=== PATIENT | male | born 1960 | race Caucasian/White ===

== ENCOUNTER 2017-03-30 21:13 | Emergency (ER) | payer BC ==
[~2017-03-30] VITALS: Ht 165.1 cm; Wt 95.3 kg
--- NOTE | ~2017-03-30 | EKG ---
[place], [place] ELECTROCARDIOGRAM REPORT NAME: COY HERNANDEZ UNIT #: [id number] ROOM: DOCTOR: FRIDA SCHUSTER MD BIRTHDATE: [birth year] DOS: 03/30/2017 TIME: 21:46:11 RATE AND RHYTHM: Sinus tachycardia at 106 beats per minute. KS interval 164 milliseconds. QRS duration 97 milliseconds. Corrected QT interval 432 milliseconds. QRS axis is 262. IMPRESSION: 1. Sinus tachycardia. 2. Minimal ST elevation in inferior leads II, III, aVF, 0.08 millivolts. Consider rule out inferior wall injury. 3. This is an abnormal EKG. FRIDA SCHUSTER MD CM:EKGRPT:ELECTROCARDIOGRAM REPORT [id number] FRIDA SCHUSTER MD
[2017-03-30 22:03] LABS: BASO # 0.1 10*3/uL (0.0-0.1); BASO % 0.4 % (0.0-1.0); EOS # 0.2 10*3/uL (0.0-0.4); EOS % 1.5 % (1.0-4.0); HEMATOCRIT 48.1 % (42.0-52.0); HEMOGLOBIN 15.8 g/dl (14.0-18.0); LYMPH # 1.2 10*3/uL (1.3-4.4); LYMPH % 7.8 % (27.0-41.0); MEAN CELL VOLUME 93.9 fl (80.0-94.0); MEAN CORPUSCULAR HGB 30.9 pg (27.0-31.0); MEAN CORPUSCULAR HGB CONC 32.8 g/dl (33.0-37.0); MONO % 6.8 % (3.0-9.0); NEUT # 12.3 10*3/uL (2.3-7.9); PLATELET COUNT AUTOMATED 201 10*3/uL (130-400); RED BLOOD COUNT 5.12 10*6/uL (4.50-5.90); WHITE BLOOD COUNT 14.8 10*3/uL (4.8-10.8)
[2017-03-30 22:19] LABS: BUN 10 mg/dl (7-24); CHLORIDE 102 mmol/L (98-107); CREATININE 0.95 mg/dL (0.70-1.30); POTASSIUM 4.2 mmol/L (3.5-5.1); SODIUM 138 mmol/L (136-145)
[2017-03-30 22:20] LABS: TROPONIN I < 0.015 ng/ml (<0.045)
[2017-03-30] MEDS ORDERED: DUONEB 3 MG/3 ML3 M1 INH (23:38)
[2017-03-30] MEDS ORDERED: PREDNISONE20 M1 PO (23:38)
[2017-03-30] MEDS ORDERED: LEVOFLOXACIN500 MG PO (23:38)
== END 2017-03-31 01:10 | disposition home or self-care (01) ==
LOC: ED 21:13
PROVIDERS: Emergency Medicine Emergency Medical Services
DX: J44.1 Chronic obstructive pulmonary disease with (acute) exacerbation (principal); F17.200 Nicotine dependence, unspecified, uncomplicated

== ENCOUNTER 2021-07-20 12:17 | Inpatient (IN) | payer OTHER ==
[~2021-07-20] VITALS: Ht 165.1 cm; Wt 106.3 kg
[~2021-07-20 12:17] MED LIST: DUONEB 3 MG/3 ML3 M1 INH; LEVOFLOXACIN500 MG PO; PREDNISONE20 M1 PO
[2021-07-20 12:53] LABS: HEMATOCRIT 48.6 % (42.0-52.0); MEAN CELL VOLUME 93.5 fl (80.0-94.0); MEAN CORPUSCULAR HGB 31.3 pg (27.0-31.0); MEAN CORPUSCULAR HGB CONC 33.5 g/dl (33.0-37.0); PLATELET COUNT AUTOMATED 330 10*3/uL (130-400); RED CELL DISTRI WIDTH 13.4 % (0-14.5); WHITE BLOOD COUNT 23.1 10*3/uL (4.8-10.8)
[2021-07-20 13:05] LABS: ALBUMIN 3.9 gm/dl (3.1-4.5); ALKALINE PHOSPHATASE 94 U/L (45-117); BUN 17 mg/dl (7-24); CHLORIDE 105 mmol/L (98-107); CREATININE 0.96 mg/dL (0.70-1.30); POTASSIUM 4.1 mmol/L (3.5-5.1); SGOT/AST 14 IU/L (3-35); SGPT/ALT 34 U/L (12-78); SODIUM 138 mmol/L (136-145); TOTAL PROTEIN 7.5 gm/dL (6.4-8.2)
[2021-07-20 13:21] LABS: PLATELET SUFFICIENCY NORMAL (NORMAL); TOTAL CELLS COUNTED 100 #CELLS
[2021-07-20 14:49] VITALS: BP 128/60
[2021-07-20] MEDS ORDERED: TRELEGY ELLIPT1 EACH INH (16:38)
[2021-07-20] MEDS ORDERED: DALI500T PO (16:38)
[2021-07-20 17:32] VITALS: BP 126/63
[2021-07-20 21:14] LABS: BILIRUBIN Negative (Negative); BLOOD Negative (Negative); CLARITY Clear (Clear); COLOR Yellow (Yellow); GLUCOSE Trace (Negative); KETONE 1+ (Negative); LEUKO ESTERASE Negative (Negative); NITRITE Negative (Negative); SPECIFIC GRAVITY >= 1.030 (1.001-1.030); UROBILINOGEN 0.2 E.U./dl (0.0-1.0)
[2021-07-20 21:20] VITALS: BP 170/73
[2021-07-20 21:30] VITALS: BP 161/90
[2021-07-20 21:32] LABS: BACTERIA 2+; URIC ACID CRYSTALS 2+
[2021-07-21] VITALS: BP 149/80
[2021-07-21 06:57] LABS: HEMATOCRIT 50.3 % (42.0-52.0); MEAN CELL VOLUME 93.8 fl (80.0-94.0); MEAN PLATELET VOLUME 9.8 fl (9.6-12.3); PLATELET COUNT AUTOMATED 250 10*3/uL (130-400); RED BLOOD COUNT 5.36 10*6/uL (4.50-5.90); RED CELL DISTRI WIDTH 13.3 % (0-14.5); WHITE BLOOD COUNT 21.8 10*3/uL (4.8-10.8)
[2021-07-21 07:13] LABS: ALBUMIN 3.3 gm/dl (3.1-4.5); BUN 13 mg/dl (7-24); CHLORIDE 105 mmol/L (98-107); CHOLESTEROL 153 mg/dL (<200); CREATININE 0.84 mg/dL (0.70-1.30); POTASSIUM 4.3 mmol/L (3.5-5.1); SGOT/AST 13 IU/L (3-35); SGPT/ALT 28 U/L (12-78); SODIUM 137 mmol/L (136-145); TRIGLYCERIDES 61 mg/dl (<150)
[2021-07-21 07:17] LABS: ALKALINE PHOSPHATASE 73 U/L (45-117); FREE T4 0.91 ng/dl (0.76-1.46); LDL CHOLESTEROL 101 mg/dL (9-159); THYROID STIM HORMONE (HS) 0.332 uIU/ml (0.358-4.75); TOTAL PROTEIN 6.8 gm/dL (6.4-8.2)
[2021-07-21 07:51] LABS: BURR CELLS FEW; PLATELET SUFFICIENCY NORMAL (NORMAL); POLYCHROMASIA SLIGHT; TOTAL CELLS COUNTED 100 #CELLS
[2021-07-21 08:00] VITALS: BP 153/90
[2021-07-21 12:00] VITALS: BP 150/93
[2021-07-21 16:00] VITALS: BP 157/93
[2021-07-21 20:00] VITALS: BP 149/77
[2021-07-22] VITALS: BP 138/81
[2021-07-22 07:06] LABS: HEMATOCRIT 48.2 % (42.0-52.0); MEAN CORPUSCULAR HGB 31.7 pg (27.0-31.0); MEAN CORPUSCULAR HGB CONC 32.4 g/dl (33.0-37.0); MEAN PLATELET VOLUME 10.3 fl (9.6-12.3); PLATELET COUNT AUTOMATED 220 10*3/uL (130-400); RED BLOOD COUNT 4.92 10*6/uL (4.50-5.90); RED CELL DISTRI WIDTH 13.9 % (0-14.5); WHITE BLOOD COUNT 25.4 10*3/uL (4.8-10.8)
[2021-07-22 07:15] LABS: ALBUMIN 2.4 gm/dl (3.1-4.5); ALKALINE PHOSPHATASE 63 U/L (45-117); BUN 17 mg/dl (7-24); CHLORIDE 103 mmol/L (98-107); POTASSIUM 4.2 mmol/L (3.5-5.1); SGOT/AST 20 IU/L (3-35); SODIUM 135 mmol/L (136-145); TOTAL PROTEIN 6.2 gm/dL (6.4-8.2)
[2021-07-22 07:23] LABS: LIPASE 1139 U/L (73-393); SGPT/ALT 18 U/L (12-78)
[2021-07-22 08:00] VITALS: BP 149/74
[2021-07-22 08:32] LABS: ATYPICAL LYMPHS 1 % (0-0); PLATELET SUFFICIENCY NORMAL (NORMAL); POLYCHROMASIA SLIGHT; TOTAL CELLS COUNTED 100 #CELLS; TOXIC GRANULATION SLIGHT
[2021-07-22 08:33] LABS: BURR CELLS FEW
[2021-07-22 16:00] VITALS: BP 144/74
[2021-07-22 20:00] VITALS: BP 141/82
[2021-07-23] VITALS (10 sets, daily range): BP systolic 105–167; BP diastolic 46–82
[2021-07-23 06:49] LABS: BASO % 0.2 % (0.0-1.0); EOS # 0.2 10*3/uL (0.0-0.4); EOS % 0.9 % (1.0-4.0); HEMATOCRIT 41.7 % (42.0-52.0); LYMPH # 0.7 10*3/uL (1.3-4.4); MEAN CELL VOLUME 96.1 fl (80.0-94.0); MEAN CORPUSCULAR HGB 31.3 pg (27.0-31.0); MEAN CORPUSCULAR HGB CONC 32.6 g/dl (33.0-37.0); MEAN PLATELET VOLUME 10.2 fl (9.6-12.3); MONO # 1.5 10*3/uL (0.1-1.0); MONO % 8.2 % (3.0-9.0); NEUT # 15.6 10*3/uL (2.3-7.9); NEUT % 85.7 % (47.0-73.0); PLATELET COUNT AUTOMATED 202 10*3/uL (130-400); RED BLOOD COUNT 4.34 10*6/uL (4.50-5.90); RED CELL DISTRI WIDTH 13.8 % (0-14.5); WHITE BLOOD COUNT 18.2 10*3/uL (4.8-10.8)
[2021-07-23 07:07] LABS: CHLORIDE 99 mmol/L (98-107); POTASSIUM 3.8 mmol/L (3.5-5.1); SODIUM 136 mmol/L (136-145)
[2021-07-23 07:13] LABS: ALBUMIN 2.3 gm/dl (3.1-4.5); ALKALINE PHOSPHATASE 61 U/L (45-117); BUN 11 mg/dl (7-24); CREATININE 0.82 mg/dL (0.70-1.30); LIPASE 352 U/L (73-393); SGOT/AST 20 IU/L (3-35); SGPT/ALT 15 U/L (12-78); TOTAL PROTEIN 6.1 gm/dL (6.4-8.2)
[2021-07-24] VITALS: BP 136/57
[2021-07-24 06:34] LABS: BASO % 0.2 % (0.0-1.0); EOS # 0.1 10*3/uL (0.0-0.4); EOS % 0.4 % (1.0-4.0); HEMATOCRIT 34.9 % (42.0-52.0); LYMPH # 0.5 10*3/uL (1.3-4.4); LYMPH % 2.8 % (27.0-41.0); MEAN CELL VOLUME 93.8 fl (80.0-94.0); MEAN CORPUSCULAR HGB 31.5 pg (27.0-31.0); MEAN CORPUSCULAR HGB CONC 33.5 g/dl (33.0-37.0); MEAN PLATELET VOLUME 10.3 fl (9.6-12.3); MONO # 1.1 10*3/uL (0.1-1.0); MONO % 6.4 % (3.0-9.0); NEUT # 14.7 10*3/uL (2.3-7.9); NEUT % 88.6 % (47.0-73.0); PLATELET COUNT AUTOMATED 232 10*3/uL (130-400); RED BLOOD COUNT 3.72 10*6/uL (4.50-5.90); RED CELL DISTRI WIDTH 13.2 % (0-14.5); WHITE BLOOD COUNT 16.6 10*3/uL (4.8-10.8)
[2021-07-24 06:38] LABS: CHLORIDE 98 mmol/L (98-107); POTASSIUM 3.7 mmol/L (3.5-5.1); SODIUM 135 mmol/L (136-145)
[2021-07-24 06:48] LABS: ALBUMIN 2.1 gm/dl (3.1-4.5); ALKALINE PHOSPHATASE 55 U/L (45-117); BUN 13 mg/dl (7-24); CREATININE 0.78 mg/dL (0.70-1.30); SGOT/AST 39 IU/L (3-35); SGPT/ALT 33 U/L (12-78); TOTAL PROTEIN 5.9 gm/dL (6.4-8.2)
[2021-07-24 07:55] VITALS: BP 132/78
[2021-07-24 12:00] VITALS: BP 157/70
[2021-07-24 16:00] VITALS: BP 137/84
[2021-07-24 20:00] VITALS: BP 154/73
[2021-07-25] VITALS: BP 152/83
[2021-07-25 07:27] LABS: CHLORIDE 99 mmol/L (98-107); POTASSIUM 3.7 mmol/L (3.5-5.1); SODIUM 139 mmol/L (136-145)
[2021-07-25 07:37] LABS: ALBUMIN 2.3 gm/dl (3.1-4.5); ALKALINE PHOSPHATASE 58 U/L (45-117); BUN 15 mg/dl (7-24); CREATININE 0.81 mg/dL (0.70-1.30); SGOT/AST 28 IU/L (3-35); SGPT/ALT 30 U/L (12-78); TOTAL PROTEIN 5.9 gm/dL (6.4-8.2)
[2021-07-25 07:43] LABS: HEMATOCRIT 36.9 % (42.0-52.0); MEAN CORPUSCULAR HGB 31.5 pg (27.0-31.0); MEAN CORPUSCULAR HGB CONC 32.5 g/dl (33.0-37.0); PLATELET COUNT AUTOMATED 261 10*3/uL (130-400); RED BLOOD COUNT 3.81 10*6/uL (4.50-5.90); RED CELL DISTRI WIDTH 13.3 % (0-14.5); WHITE BLOOD COUNT 18.2 10*3/uL (4.8-10.8)
[2021-07-25 07:45] LABS: MEAN CELL VOLUME 96.9 fl (80.0-94.0)
[2021-07-25 08:00] VITALS: BP 157/80
[2021-07-25 09:56] LABS: PLATELET SUFFICIENCY NORMAL (NORMAL); TOTAL CELLS COUNTED 100 #CELLS
[2021-07-25 12:00] VITALS: BP 139/68
[2021-07-25 16:00] VITALS: BP 153/80
[2021-07-25 20:00] VITALS: BP 152/74
[2021-07-26] VITALS: BP 146/70
[2021-07-26 08:00] VITALS: BP 137/68
[2021-07-26] MEDS ORDERED: CIPRO500 MG PO (11:40)
[2021-07-26] MEDS ORDERED: METRONIDAZOLE500 M1 PO (11:41)
[2021-07-26] MEDS ORDERED: PREDNISONE50 MG PO (11:41)
== END 2021-07-26 13:09 | disposition home or self-care (01) | DRG 710 ==
LOC: ED 12:17 → EDHOLD 15:56 → 5E 15:56
PROVIDERS: Internal Medicine; Physician Assistant; Student in an Organized Health Care Education/Training Program; ADMIT Internal Medicine; ATTEND Internal Medicine
PROC: 0FT40ZZ Resection of Gallbladder, Open Approach (ICD-10-PCS; principal; 2021-07-23)
PROC: 0FJ44ZZ Inspection of Gallbladder, Percutaneous Endoscopic Approach (ICD-10-PCS; 2021-07-23)
DX: A41.9 Sepsis, unspecified organism (principal); K85.10 Biliary acute pancreatitis without necrosis or infection; R65.20 Severe sepsis without septic shock; R91.1 Solitary pulmonary nodule; R73.9 Hyperglycemia, unspecified; K44.9 Diaphragmatic hernia without obstruction or gangrene; K76.0 Fatty (change of) liver, not elsewhere classified; K57.90 Diverticulosis of intestine, part unspecified, without perforation or abscess without bleeding; F17.210 Nicotine dependence, cigarettes, uncomplicated; E66.9 Obesity, unspecified; J44.9 Chronic obstructive pulmonary disease, unspecified; Z53.31 Laparoscopic surgical procedure converted to open procedure; Z71.6 Tobacco abuse counseling; Z79.899 Other long term (current) drug therapy; Z68.38 Body mass index [BMI] 38.0-38.9, adult; E44.1 Mild protein-calorie malnutrition

== ENCOUNTER → 2022-05-08 | Day surgery (SDC) | payer OTHER ==
[~2022-05-08] VITALS: Ht 167.6 cm; Wt 86.2 kg
[~2022-05-08] MED LIST changes: +BREO ELLIPTA 11 EACH INH; +CIPRO500 MG PO; +DALI500T PO; +METRONIDAZOLE500 M1 PO; +PREDNISONE50 MG PO; +TRELEGY ELLIPT1 EACH INH
[2022-05-08 09:10] VITALS: BP 119/56
[2022-05-08 10:08] VITALS: BP 106/46
[2022-05-08 10:23] VITALS: BP 118/46
== END | disposition home or self-care (01) ==
LOC: SDC 05-05 14:00
PROVIDERS: ATTEND Surgery
DX: K92.1 Melena (principal); D12.5 Benign neoplasm of sigmoid colon; D12.2 Benign neoplasm of ascending colon; K57.30 Diverticulosis of large intestine without perforation or abscess without bleeding; D64.9 Anemia, unspecified; K29.50 Unspecified chronic gastritis without bleeding; J44.9 Chronic obstructive pulmonary disease, unspecified; Z87.891 Personal history of nicotine dependence; Z79.899 Other long term (current) drug therapy

== ENCOUNTER 2024-01-15 09:35 | Emergency (ER) | payer OTHER ==
[~2024-01-15] VITALS: Ht 165.1 cm; Wt 86.2 kg
[~2024-01-15 09:35] MED LIST changes: +Ipratropium Brom3 ML INH; +OMNICEF300 MG PO; +PREDNISONE10 MG PO; +ZITHROMAX500 MG PO
[2024-01-15] MEDS ORDERED: PREDNISONE50 MG PO (11:53)
[2024-01-15] MEDS ORDERED: ZITHROMAX250 MG PO (11:53)
[2024-01-15] MEDS ORDERED: AZITHROMYCIN 250 MG TAB PO ONE (11:55)
[2024-01-15] MEDS ORDERED: methylPREDNISolone sod succ 125 MG VIAL IM ONE (11:55)
[2024-01-15] MEDS ORDERED: Albuterol Sulf/Ipratropium 3 ML VIAL NEB ONE (11:55)
== END 2024-01-15 12:15 | disposition home or self-care (01) ==
LOC: ED 09:35
DX: L23.7 Allergic contact dermatitis due to plants, except food (principal); J44.9 Chronic obstructive pulmonary disease, unspecified; F17.200 Nicotine dependence, unspecified, uncomplicated; Z90.49 Acquired absence of other specified parts of digestive tract; Z98.890 Other specified postprocedural states